=== PATIENT | male | born 1995 | race Caucasian/White ===

== ENCOUNTER 2019-03-12 20:13 | Observation (INO) | payer OTHER ==
[2019-03-12] MEDS ORDERED: methylPREDNISolone Sod Succ/PF 125 MG/2 ML VIAL ONE (21:06)
[2019-03-12] MEDS ORDERED: diphenhydrAMINE 50 MG/ML VIAL ONE (21:06)
[2019-03-12] MEDS ORDERED: Ondansetron PF 4 MG/2 ML Vial ONE ×2 (21:06→22:43)
[2019-03-12 21:11] LABS: #Basophils 0.2 thou/uL (0.0-0.2); #Eosinphils 0.1 thou/uL (0.0-0.7); #Lymphocytes 4.3 thou/uL (1.20-3.40); #Monocytes 0.6 thou/uL (0.11-0.59); #Neutrophils 3.9 thou/uL (1.40-6.50); %Eosinophils 1.4 % (0.0-10.0); %Lymphocytes 47.2 % (21.0-51.0); %Monocytes 6.2 % (0.0-10.0); %Neutrophils 43.2 % (42.0-75.0); Hemoglobin 16.8 g/dL (14.0-18.0); Mean Corpuscular HGB CONC 34.9 g/dL (32.0-36.0); Mean Corpuscular Hemoglobin 32.7 pg (27.0-31.0); Mean Corpuscular Volume 93.8 fL (78.0-98.0); Mean Platelet Volume 8.3 fL (7.4-10.4); Platelet Count 254 thou/uL (130-400); RBC Distribution Width 11.6 % (11.5-14.5); Red Blood Cell (RBC) Count 5.12 mill/uL (4.70-6.10)
[2019-03-12 21:17] LABS: PTT 25.3 SEC (22.9-36.1); Prothrombin Time 12.7 SEC (12.0-14.7)
[2019-03-12] MEDS ORDERED: Crotalidae Polyvlnt Antivenin 4 GM in Sodium Chloride 0.9% 250 ML 250 ML IVPB SCH (21:30)
[2019-03-12 21:32] LABS: ALT (SGPT) 31 U/L (8-55); AST (SGOT) 28 U/L (5-34); Albumin 5.5 g/dL (3.5-5.0); Alkaline Phosphatase 80 U/L (40-110); Anion Gap 19 mmol/L (10-20); BUN (Urea Nitrogen) 11 mg/dL (8.9-20.6); Bilirubin, Total 0.4 mg/dL (0.2-1.2); Calc. Creatinine Clearance 0 mL/min (70-130); Calcium 10.5 mg/dL (7.8-10.44); Carbon Dioxide 20 mmol/L (22-29); Chloride 104 mmol/L (98-107); Estimated GFR-MDRD 76; Globulin 3.2 g/dL (2.4-3.5); Glucose 105 mg/dL (70-105); Potassium 3.4 mmol/L (3.5-5.1); Protein, Total 8.7 g/dL (6.0-8.3); Sodium 140 mmol/L (136-145)
[2019-03-12] MEDS ORDERED: Morphine 4 MG/ML VIAL ONE (21:32)
[2019-03-12 21:33] LABS: Acetaminophen Less than 6.0 mcg/mL (10.0-30.0); Alcohol 117 mg/dL (Less than 10); CK (CPK) 177 U/L (30-200); Salicylate Less than 8.0 mg/dL (15.0-30.0)
--- NOTE | 2019-03-12 21:54 | PDOC.FPRHP ---
- History of Present Illness Chief Complaint: Snakebite History of Present Illness: 23-year-old male with a past medical history of major depressive disorder comes into the emergency department for snakebite that occurred at 7:30 on the evening of 03/12. Patient reports pain redness and swelling at the area of snake by where there are two visible puncture alfaro on the left lateral ankle. Pain 4/10 in intensity. Pt [place] in [place] when he [place] on the snake. He did not identify the species. Patient denies any paresthesia or radiation of pain along the extremity of the snake by. Patient reports his whole body feeling warm and that he is very tired. Patient has been very nauseous and vomiting. Patient reports he had drinking alcohol earlier in the evening. Emergency department course: patient was given four vials of CroFab, solumedrol , benadryl, 1L NS, morphine, and zofran. Labs PT 12.7 INR 1.0 PTT 25.3 fibrinogen 321. Lactic acid 3.5. EKG Sinus Tach. - Allergies/Adverse Reactions Allergies Allergy/AdvReac Type Severity Reaction Status Date / Time No Known Drug Allergies Allergy Verified 03/12/19 23:37 - Home Medications Medication Instructions Recorded Confirmed Type Escitalopram Oxalate [Lexapro] 10 mg PO DAILY 03/12/19 03/13/19 History - History PMHx: MDD PSHx: no surgeries FHx: No medical problems Social: Drinks etoh socially. Denies tobacco or illicit drug use. - Review of Systems General: reports: fatigue. denies: fever/chills Respiratory: denies: cough, shortness of breath Cardiovascular: denies: chest pain, palpitation Gastrointestinal: reports: nausea, vomiting. denies: diarrhea, abdominal pain Skin: denies: itching Musculoskeletal: reports: pain, swelling Neurological: denies: numbness, syncope, weakness - Vital signs BP: 100/53 HR: 103 RR: 20 Tmax: 98.3 Pox: 99% on RA Wt: 88.5kg - Physical Exam Constitutional: NAD, awake, alert and oriented, well developed -Constitutional: somnolent, but easily arousable . HEENT: normocephalic and atraumatic, PERRLA, EOMI, conjunctiva clear, no scleral icterus, grossly normal vision, grossly normal hearing, MMM, oropharynx clear, good dention Neck: supple, FROM, trachea midline, no LAD, no JVD, no thyromegaly Chest: no-tender to palpation Heart: RRR, normal S1/S2, no murmurs/rubs/gallops, pulses present, no edema Lungs: CTAB, no respiratory distress, good air movement, no rales/rhonchi, no wheezing, no retractions Abdomen: soft, non-tender, bowel sounds present, no masses/distention, no hernias Musculoskeletal: normal structure, normal tone, ROM grossly normal -Musculoskeletal: Left lateral ankle, just below the lateral malleolus there are 2 small pinpoint puncture wounds, consistent with snake bite hx. Surrounding erythema 3-4 cm around lesion, marked to monitor margins. Trace edema. Neurological: no focal deficit, CN II-XII intact, normal sensation Skin: no rash/lesions, good turgor, capillary refill <2 seconds, no jaundice Heme/Lymphatic: no unusual bruising or bleeding, no purpura, no petechia, no LAD Psychiatric: normal mood and affect, intact recent and remote memory -Psychiatric: somnolent, easily arousable, appears intoxicated. FMR H&P: Results - Labs Result Diagrams: 03/13/19 03:10 03/13/19 03:10 Lab results: WBC 9.0 thou/uL (4.8-10.8) 03/12/19 21:07 Hgb 16.8 g/dL (14.0-18.0) 03/12/19 21:07 Hct 48.0 % (42.0-52.0) 03/12/19 21:07 MCV 93.8 fL (78.0-98.0) 03/12/19 21:07 Plt Count 254 thou/uL (130-400) 03/12/19 21:07 Neutrophils % 43.2 % (42.0-75.0) 03/12/19 21:07 Sodium 140 mmol/L (136-145) 03/12/19 21:07 Potassium 3.4 mmol/L (3.5-5.1) L 03/12/19 21:07 Chloride 104 mmol/L (98-107) 03/12/19 21:07 Carbon Dioxide 20 mmol/L (22-29) L 03/12/19 21:07 BUN 11 mg/dL (8.9-20.6) 03/12/19 21:07 Creatinine 1.18 mg/dL (0.7-1.3) 03/12/19 21:07 Glucose 105 mg/dL (70-105) 03/12/19 21:07 Lactic Acid 3.5 mmol/L (0.5-2.2) H 03/12/19 20:38 Calcium 10.5 mg/dL (7.8-10.44) H 03/12/19 21:07 Total Bilirubin 0.4 mg/dL (0.2-1.2) 03/12/19 21:07 AST 28 U/L (5-34) 03/12/19 21:07 ALT 31 U/L (8-55) 03/12/19 21:07 Alkaline Phosphatase 80 U/L (40-110) 03/12/19 21:07 Creatine Kinase 177 U/L (30-200) 03/12/19 21:07 Serum Total Protein 8.7 g/dL (6.0-8.3) H 03/12/19 21:07 Albumin 5.5 g/dL (3.5-5.0) H 03/12/19 21:07 Laboratory Tests 03/12/19 03/12/19 03/12/19 20:38 21:07 21:07 PT 12.7 INR 1.0 APTT 25.3 Fibrinogen 321 Potassium 3.4 L Creatinine 1.18 Lactic Acid 3.5 H Creatine Kinase Plasma Alcohol 03/12/19 21:07 PT INR APTT Fibrinogen Potassium Creatinine Lactic Acid Creatine Kinase 177 Plasma Alcohol 117 H - EKG Interpretation EKG: sinus tach FMR H&P: A/P - Problem List (1) Snake bite Current Visit: Yes Status: Acute Code(s): W59.11XA - BITTEN BY NONVENOMOUS SNAKE, INITIAL ENCOUNTER (2) MDD (major depressive disorder) Current Visit: Yes Status: Acute Code(s): F32.9 - MAJOR DEPRESSIVE DISORDER , SINGLE EPISODE, UNSPECIFIED (3) Alcohol intoxication Current Visit: Yes Status: Acute - Plan 23 y/o M with pmhx of MDD admitted to [facility] for snake bite occurring approximately at 0 on 03/12. 1. Snake Bite - Unknown species of snake - Occurred at 1930 on 03/12 - C/O N/V - Given 4 vials Crofab in ED. - Ordered Serial Coagulation studies (PT, INR, PTT and Fibrinogen) Q6H - Pt stable, will hold on Crofab and monitor symptoms. - Started LR at 125 mL/hr. - Will treat and monitor symptoms 2. Alcohol Intoxication - etoh level 117 - Possible etiology of N/V - Added Tums and Pepcid 3. Hx of MDD - Continue home meds of Lexapro 10 g daily Dispo: Stable, admitted to tele obs for observation of snake bite and serial labs. Likely Discharge home tomorrow. FMR H&P: Upper Level - Pertinent history 23 y/o M no PMHX presents due to snake bite. He had been drinking alcohol with his friends/family and was walking along a dirt road in [facility] and noticed a snake bit his L lateral foot around 7:30pm. Denies numbness or tingling. Reports some nausea and vomiting that has improved after zofran. - Pertinent findings BP: 120/72, Pulse: 95, Resp: 18, Temp: 98.0 (Oral), Pain: 7, O2 sat: 97 on Room Air PE: Gen - drowsy, able to arouse, NAD CV - RRR, no murmurs Lungs - CTAB, no wheezes Skin - two puncture wounds on left foot laterally with surrounding erythema that is currently marked and is mild - Plan Date/Time: 03/12/192152 I, Keren Fernandez MD, PGY-3, have evaluated this patient and agree with findings/ plan as outlined by director internal communications resident. Pertinent changes/additions are listed here. 1. Snake Bite Unknown type of snake. N/V that has now resolved and some local erythema. s/p crofab, solumedrol, benadryl, 1L NS, morphine, and zofran in ED. -Will obs on tele -Monitor spread of erythema and swelling -Trend coags q6h, initial were normal -prn pain meds once no longer intoxicated 2. Elevated lactic acid -will repeat 3. Acute toxic encephalopathy 2/2 alcohol intoxication -Will give LR @ 125 4. Depression -Continue lexapro Dispo: obs on tele, length of stay likely less than 48 hours Addendum - Attending - Attending Attestation Date/Time: 03/13/19711 I personally evaluated the patient and discussed the management with Dr. Sandoval/ Jim. I agree with the History, Examination, Assessment and Plan documented above with any addition or exceptions noted below. Patient here for envenomation by snake, unknown type. He has local irritation and inflammation/pain. His labs are stable. He had some nausea originally but no systemic signs at this time. Monitor through the day, trend coags, and obtain pain control. If doing well this afternoon and no evidence of expanding tissue damage, can likely d/c home with outpatient follow up and pain control.
[2019-03-12] MEDS ORDERED: Ondansetron PF 4 MG/2 ML Vial IVP PRN (23:18)
[2019-03-12] MEDS ORDERED: Calcium Carbonate 500 MG ChewTAB PO PRN (23:18)
[2019-03-12] MEDS ORDERED: Ondansetron ODT 4 MG TAB PO PRN (23:18)
[2019-03-12] MEDS ORDERED: Acetaminophen 325 MG TAB PO PRN (23:18)
[2019-03-12] MEDS: Lactated Ringer's 1,000 ML IV SCH (23:39)
[2019-03-12 23:55] VITALS: BMI 23.6
[2019-03-13 01:19] LABS: Bacteria/HPF None Seen HPF (None Seen); Bilirubin Negative (Negative); Blood, Urine Trace (Negative); Clarity Clear (Clear); Glucose, Urine (Dipstick) Normal (Negative); Leukocyte Negative Leu/uL (Negative); Nitrite Negative (Negative); Protein, Urine (Dipstick) 50 mg/dL (Neg-Trace); Squamous Epithelial None Seen HPF (0-3); Urobilinogen Normal mg/dL (Less than 2)
[2019-03-13 01:20] LABS: Urine Culture Reflex Yes Yes
[2019-03-13 01:24] LABS: Amphetamine Not Detected (NotDetected); Barbiturates Screen Not Detected (NotDetected); Benzodiazepine Screen Not Detected (NotDetected); Cocaine Metabolite Screen Not Detected (NotDetected); Medtox Control Line Valid? VALID (VALID); Medtox Reader # READER 4; Methadone Not Detected (NotDetected); Methamphetamine Not Detected (NotDetected); Opiate Screen Detected (NotDetected); Oxycodone Screen Not Detected (NotDetected); Phencyclidine (PCP) Not Detected (NotDetected); THC/Cannabinoid Screen Not Detected (NotDetected); Tricyclic Screen Not Detected (NotDetected)
[2019-03-13 01:36] LABS: Lactic Acid 3.1 mmol/L (0.5-2.2)
[2019-03-13 03:19] LABS: #Lymphocytes 0.9 thou/uL (1.20-3.40); #Monocytes 0.3 thou/uL (0.11-0.59); #Neutrophils 13.4 thou/uL (1.40-6.50); %Basophils 0.1 % (0.0-1.0); %Eosinophils 0.1 % (0.0-10.0); %Lymphocytes 6.3 % (21.0-51.0); %Monocytes 1.7 % (0.0-10.0); %Neutrophils 91.8 % (42.0-75.0); Mean Corpuscular HGB CONC 34.6 g/dL (32.0-36.0); Mean Corpuscular Hemoglobin 32.7 pg (27.0-31.0); Mean Corpuscular Volume 94.5 fL (78.0-98.0); Mean Platelet Volume 8.3 fL (7.4-10.4); Platelet Count 235 thou/uL (130-400); RBC Distribution Width 11.5 % (11.5-14.5); Red Blood Cell (RBC) Count 4.59 mill/uL (4.70-6.10); White Blood Cell (WBC) Count 14.6 thou/uL (4.8-10.8)
[2019-03-13 03:29] LABS: INR-International Normal Ratio 1.1; Prothrombin Time 13.7 SEC (12.0-14.7)
[2019-03-13 03:34] LABS: PTT 22.4 SEC (22.9-36.1)
[2019-03-13 03:48] LABS: Anion Gap 16 mmol/L (10-20); BUN (Urea Nitrogen) 12 mg/dL (8.9-20.6); Calc. Creatinine Clearance 129 mL/min (70-130); Carbon Dioxide 23 mmol/L (22-29); Chloride 107 mmol/L (98-107); Estimated GFR-MDRD 85; Glucose 115 mg/dL (70-105); Sodium 142 mmol/L (136-145)
[2019-03-13 04:25] VITALS: TEMP 98.2
--- NOTE | 2019-03-13 06:09 | PDOC.FM ---
- Subjective Subjective: Pt is doing well. He has pain at L foot but denies erythema, warmth. He denies continued N/V. - Objective Vital Signs & Weight: Vital Signs (12 hours) Temp Pulse Resp BP BP Pulse Ox 03/13/19 04:23 98.2 F 72 14 115/59 L 98 03/12/19 23:13 98.0 F 93 20 115/60 98 Weight Weight 85.91 kg I&O: 03/11/19 03/12/19 03/13/19 06:59 06:59 06:59 Intake Total 480 Output Total 500 Balance -20 Result Diagrams: 03/13/19 03:10 03/13/19 03:10 Phys Exam - Physical Examination Constitutional: NAD Respiratory: no wheezing, no rales, no rhonchi, clear to auscultation bilateral Cardiovascular: RRR, no significant murmur Gastrointestinal: soft, non-tender, no distention Musculoskeletal: pulses present L foot trace edema, no erythema, warmth Neurological: normal sensation, moves all 4 limbs Dx/Plan (1) Alcohol intoxication Status: Acute (2) MDD (major depressive disorder) Code(s): F32.9 - MAJOR DEPRESSIVE DISORDER, SINGLE EPISODE, UNSPECIFIED Status : Acute (3) Snake bite Code(s): W59.11XA - BITTEN BY NONVENOMOUS SNAKE, INITIAL ENCOUNTER Status: Acute - Plan Plan: 23 y/o M with pmhx of MDD admitted to tele obs for snake bite occurring approximately at 1929 on 03/12. 1. Snake Bite - Unknown species of snake - Occurred at 1929 on 03/12 - C/O N/V - Given 4 vials Crofab in ED. - Ordered Serial Coagulation studies --> no changes, WNL - Lactic acid 3.5 --> 3.1 --> pending - Pt stable, will hold on Crofab and monitor symptoms. - Started LR at 125 mL/hr. - Will treat and monitor symptoms 2. Alcohol Intoxication - etoh level 117 - Possible etiology of N/V - Added Tums and Pepcid 3. Hx of MDD - Continue home meds of Lexapro 10 g daily 4. Lactic Acidosis - likely secondary to necrosis at snake bite 5. Leukocytosis - likely secondary to steroids in ed Dispo: Stable, admitted to tele obs for observation of snake bite and serial labs. Likely Discharge home today. Addendum - Attending - Attending Attestation Date/Time: 03/13/19 4920 I personally evaluated the patient and discussed the management with Dr. Galan. I agree with the History, Examination, Assessment and Plan documented above with any addition or exceptions noted below. Please see electronic H/P for full attending details for 03/13/19.
[2019-03-13 07:28] LABS: Lactic Acid 3.6 mmol/L (0.5-2.2)
[2019-03-13] MEDS: Lactated Ringer's 1,000 ML IV SCH (07:48)
[2019-03-13 08:03] VITALS: BP 115/58
[2019-03-13] MEDS ORDERED: Ketorolac Tromethamine 30 MG/ML VIAL IVP SCH (08:45)
[2019-03-13] MEDS ORDERED: Escitalopram Oxalate 10 mg Tablet PO SCH (09:00)
[2019-03-13] MEDS ORDERED: Famotidine 20 MG TAB PO SCH (09:00)
[2019-03-13 09:42] LABS: INR-International Normal Ratio 1.1; Prothrombin Time 13.9 SEC (12.0-14.7)
[2019-03-13 09:43] LABS: PTT 26.4 SEC (22.9-36.1)
--- NOTE | 2019-03-13 23:52 | DIS ---
DATE OF ADMISSION: 03/12/2019 DATE OF DISCHARGE: 03/13/2019 RESIDENT: Aditya Galan DO ADMITTING ATTENDING: Deon Sewell MD DISCHARGE ATTENDING: Deon Sewell MD CONSULTS: None. PROCEDURES PERFORMED: None. PRIMARY DIAGNOSIS: Snake bite. SECONDARY DIAGNOSIS: Major depressive disorder. DISCHARGE MEDICATIONS: Tylenol No. 3 1 tab p.o. q.6 hours p.r.n. pain. HISTORY OF PRESENT ILLNESS/HOSPITAL COURSE: The patient is a 23-year-old male, who comes in on 03/12/2019 with past medical history significant for major depressive disorder, who presented with left lower extremity snake bite. He states he was walking on trails while intoxicated and was bit by a snake. In the emergency department, he was given four vials of CroFab. He was found to have lactic acidosis and was nauseated and vomiting. Symptoms were alleviated after the CroFab. On top of that, he was given Motrin and steroids. On the day of discharge, he had mild edema without any erythema to his lower left extremity. He did state that he had some pain, so he was discharged with Tylenol No. 3 for short course. 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 DISPOSITION: Stable. DISCHARGE INSTRUCTIONS: 1. Location: [facility]. 2. Diet: Ad ata. 3. Activity: Ad ata. 4. Followup: Follow up with PCP as needed. Instructed to follow up if his wound becomes erythematous or he begins to become febrile. Job ID: [id number] [id number]
== END 2019-03-13 12:57 | disposition home or self-care (01) ==
LOC: ERS 20:13 → 2SW 23:10
PROVIDERS: ADMIT Student in an Organized Health Care Education/Training Program; ATTEND Student in an Organized Health Care Education/Training Program
DX: T63.001A Toxic effect of unspecified snake venom, accidental (unintentional), initial encounter (principal); M25.572 Pain in left ankle and joints of left foot; M25.472 Effusion, left ankle; F32.9 Major depressive disorder, single episode, unspecified; F10.129 Alcohol abuse with intoxication, unspecified; G92 Toxic encephalopathy; E87.2 Acidosis; D72.829 Elevated white blood cell count, unspecified; Z79.899 Other long term (current) drug therapy; Y90.6 Blood alcohol level of 120-199 mg/100 ml
CPT/HCPCS: 36415; 80048; 80053; 80306; 80307; 81001; 82550; 83605; 85025; 85384; 85610; 85730; 86850; 86900; 86901; 87086; 93005; 94760; 96361; 96365; 96366; 96375; 96376; G0378; J0840; J1200; J1885; J2270; J2405; J2930; J7050